=== PATIENT | male | born 1960 | race Caucasian/White ===

== ENCOUNTER 2017-01-19 02:19 | Observation (INO) ==
[2017-01-19] MEDS ORDERED: Naloxone 0.4 MG/ML INJ IVP PRN ×2 (02:34→09:18)
[2017-01-19] MEDS ORDERED: ceFAZolin 1,000 MG in D5% in Water 100 ML IVPB ONE (04:12)
[2017-01-19] MEDS ORDERED: 0.9 % Sodium Chloride 1,000 ML IVC SCH (04:15)
[2017-01-19] MEDS: *HR* HYDROmorphone (PF) 1 MG/ML SYRINGE IVP PRN ×4 (04:37→18:28)
--- NOTE | 2017-01-19 07:17 | Orthopedic History & Physical ---
Date of Encounter: 01/19/17 Time of Encounter: 07:15 Assessment and Plan (1) Puncture wound of knee, left Current visit: No Status: Acute I did discuss the diagnosis in detail with the patient. He has a traumatic left knee arthrotomy due to a puncture wound from a [place] drill bit. I did discuss treatment options and my recommendation was for arthroscopic knee lavage in order to reduce the risk of infection. He is currently on Ancef. The plan is to proceed to the operating room today for the procedure. I did discuss the case with my partner Dr. Morataya who will perform the procedure. Until then the patient was kept nothing by mouth. He will not require medical clearance from the hospitalist. Qualifiers: Qualified Code(s): S81.032A - Puncture wound without foreign body, left knee , initial encounter History of Present Illness HPI: Mr. Sánchez is a 56 year old male who is healthy and lives independently. He was using a motorized drill yesterday when a drill slipped and a [place] head drillbit punctured his left knee followed by the leakage of a thick clear fluid. This happened about 8:30 last night. He did not immediately seek medical care. Due to persistent pain and swelling to the left knee he went to the emergency department at [facility] about 1:30 in the morning. The ER doctor consulted me over the phone and my recommendation was to transfer the patient to [facility] in anticipation of arthroscopic lavage due to a traumatic knee arthrotomy. On my evaluation this morning the patient corroborates the above history. He complains of pain isolated to the left knee which is aching. He denies any numbness, tingling, or any other associated signs or symptoms. The pain is worse with movement and better at rest. There are no other modifying factors. Past Med Surg Social Fam HX - Past Medical History Medical history: kidney stones Psychiatric history: anxiety, depression, previous psychiatric hospitalization - Past Surgical History Surgical History: non-contributory, appendectomy - Social History Smoking Status: Light tobacco smoker Smokeless Tobacco Status: Yes (VAPE) Alcohol use: none Drug use: none - Family History Father Living Status: Age at : 73 Cause of : cancer Medications and Allergies diazePAM [Valium] 10 mg PO TID PRN 08/20/15 [History] 3 Allergy/AdvReac Type Severity Reaction Status Date / Time acetaminophen [From Tylenol] Allergy Hives Verified 10/04/17 01:20 celecoxib [From Celebrex] Allergy See Verified 01/19/17 01:18 Comments meloxicam [From Mobic] Allergy See Verified 01/19/17 01:18 Comments All Systems Reviewed: Constitutional and musculoskeletal systems were reviewed and are negative unless otherwise stated in history of present illness. Physical Exam - Constitutional Vitals: Temp Pulse Resp BP Pulse Ox 98.9 F 72 16 140/84 95 01/19/17 03:41 01/19/17 03:41 01/19/17 03:41 01/19/17 03:41 01/19/17 03:41 CONSTITUTIONAL -Vitals reviewed -The patient is well developed, well nourished, well groomed PSYCHIATRIC -Fully alert and oriented -Pleasant mood LEFT LOWER EXTREMITY -There is a small cruciate puncture along the superior medial aspect of the left knee -No redness, drainage, or concern for infection -Moderate palpable knee effusion -Mild generalized tenderness to the knee -I can gently range the knee through over 90 degree arc with only minimal pain -The knee is ligamentously stable -He can maintain a straight leg raise and demonstrates good active extension -No other tenderness or lesions noted. -He can grossly plantarflex and dorsiflex the ankle and toes and the foot is warm and well-perfused Diagnostic Imaging: I did personally review and interpret an x-ray of the left knee which did not show any radiopaque foreign body. No fractures identified. Results - Labs Labs: All other labs normal.
--- NOTE | 2017-01-19 11:22 | Anesthesia Evaluation PreOp ---
Date of Encounter: 01/19/17 Time of Encounter: 11:20 - Past History Planned Operation: Athroscopic lavage left knee Cardiac History: Denies any Significant Hx Pulmonary History: Smoker [employer] History: Other (anxiety, depression) Other Medical History: Renal (renal stones) Anesthesia History: No Prior Anesthetic Complications, Past Anesthesia (kidney stone extraction, r knee replacement) Alcohol Use: none Drug use: none Medications and Allergies diazePAM [Valium] 10 mg PO TID PRN 08/20/15 [History] Aripiprazole [Abilify] 5 mg PO DAILY 01/19/17 [History] [place] Carbonate 300 mg PO HS 01/19/17 [History] [place] Carbonate 600 mg PO BID 01/19/17 [History] Trazodone HCl 150 - 450 mg PO HS PRN 01/19/17 [History] 3 Allergy/AdvReac Type Severity Reaction Status Date / Time acetaminophen [From Tylenol] Allergy Hives Verified 01/19/17 01:20 celecoxib [From Celebrex] Allergy See Verified 01/19/17 01:18 Comments meloxicam [From Mobic] Allergy See Verified 01/19/17 01:18 Comments - Meds/Allergy Pre-op Review Medications Reviewed: Yes Allergies Reviewed: Yes Beta Blockers on Current Med List: No Anesthesia Results - Labs Laboratory Tests 08/20/14 01/19/17 01/19/17 15:49 02:30 02:30 WBC 11.4 H RBC 5.02 Hgb 15.9 Hct 46.1 Plt Count 304 Sodium 142 Potassium 3.4 L Chloride 103 Carbon Dioxide 27 BUN 7 L Creatinine 1.03 Glucose 92 Est Mean Plasma Glucose 114 Hemoglobin A1c 5.6 Anesthesia Exam Vital Signs/O2 Sat, Most Current Temp Pulse Resp BP Pulse Ox 98.5 F 69 15 100/66 93 01/19/17 07:15 01/19/17 07:15 01/19/17 07:15 01/19/17 07:15 01/19/17 07:15 Height: 1.88m Weight: 95kg NPO (# of Hours): >8 - HEENT Pupil (Motor): Pupils equal, EOMI Mallampati: II Teeth: Edentulous Oral Opening: Greater than 3 - [employer] LOC: Oriented [employer] Motor: Normal RUE, Normal LUE, Normal RLE, Normal LLE, Normal Face [employer] Sensory: Normal: RUE, LUE, RLE, LLE, Face - Cardiac Rhythm: Regular - Pulmonary Breath Sounds: bilateral Clear Respiratory Effort: Symmetrical Anesthesia Assess/Plan ASA Score: 2 Modified Joseph Scale for Level of Consciousness: Cooperative, oriented, and tranquil Anesthetic Plan: General (r/b/a discussed, questions answered, consent obtained) Monitoring Plan: Standard Monitors Recovery Plan: PACU
[2017-01-19] MEDS ORDERED: *HR* Midazolam HCl 2 MG/2 ML VIAL ONE (11:56)
[2017-01-19] MEDS ORDERED: *HR* FentaNYL (PF) 100 MCG/2 ML VIAL ONE ×2 (11:56→12:26)
[2017-01-19] MEDS ORDERED: *HR* Propofol 200 MG/20 ML VIAL IVP ONE (11:56)
[2017-01-19] MEDS ORDERED: Lidocaine -MPF 2% 2 ML VIAL ONE (11:56)
[2017-01-19] MEDS ORDERED: Lidocaine/EPI 1:100k 1% 50 ML VIAL INFILT ONE (11:57)
[2017-01-19] MEDS ORDERED: *HR* Promethazine 25 MG/ML VIAL IVP PRN (12:22)
[2017-01-19] MEDS ORDERED: *HR* Morphine 2 MG/ML SYRINGE IVP PRN (12:22)
[2017-01-19] MEDS ORDERED: Ondansetron 4 MG/2 ML VIAL IVP ONE (12:22)
[2017-01-19] MEDS ORDERED: Ondansetron 4 MG/2 ML VIAL ONE (12:28)
[2017-01-19] MEDS ORDERED: Dexamethasone 4 MG/ML VIAL ONE (12:28)
[2017-01-19] MEDS: ceFAZolin 2,000 MG in D5% in Water 100 ML IVPB SCH ×2 (12:37→18:29)
--- NOTE | 2017-01-19 13:55 | Orthopedic Operative Note ---
Date of procedure: 01/19/17 Pre-op diagnosis: Left knee traumatic arthrotomy Post-op diagnosis: other (1. Left knee traumatic arthrotomy 2. Left knee medial and lateral meniscus tears. 3. Left knee medial and lateral chondral defects) Procedure: 1. Left knee arthroscopic debridement with synovectomy 2. Left knee medial and lateral partial meniscectomies 3. Left knee medial and lateral chondroplasty. INDICATIONS: This is a 56-year-old male who injured his left knee last night after he was using a drill and accidentally had it slip off the screw and plunge into his left knee joint, causing a traumatic arthrotomy. He was transferred to our emergency department from an outside facility and admitted. He was placed on antibiotics overnight. On his initial exam he had a wound at the superior medial aspect of his knee at the location of his traumatic arthrotomy. He did have a knee effusion. He had no short arc pain with range of motion. He had no fevers or chills. Due to the nature of his injury and the obvious traumatic arthrotomy that occurred a left knee arthroscopy with debridement and synovectomy were recommended to the patient. The risks and benefits of the procedure were fully explained. Those risks include but are not limited to, infection, neurovascular injury, continued pain, arthritis, stiffness of the knee, further injury, need for further surgery, DVT, PE, loss of limb, and loss of life. The patient understood all of these risks and wished to proceed. Informed consent was obtained. OPERATIVE REPORT: The patient was identified in the holding area. The left lower extremity was marked, the patient was taken to the operating room and placed in the supine position. All bony prominences were well padded. The anesthesiologist performed successful general anesthetic for the remainder of the case. Preoperative antibiotics were given prior to incision. A tourniquet was placed on the upper thigh of the left lower extremity which was then prepped and draped in the usual fashion. A surgical timeout was performed. An 18g needle was used to drain 70 cc of blood from the knee. There was no purulence. 30 cc of 0.5% lidocaine with epi was injected at the portal sites and knee joint. A standard anterolateral and anteromedial portals were made. Arthroscopic examination of the knee followed. Suprapatellar pouch showed inflammation and synovitis. Patellofemoral compartment showed grade 2 changes of the trochlea. The medial compartment showed an area of grade 3 chondral change of the medial femoral condyle. There was a horizontal cleavage tear of his medial meniscus from the posterior horn to the body. The ACL and PCL were normal. The lateral compartment showed a 4 x 8 mm grade 3 chondral defect of the lateral femoral condyle. There was a small flap tear of the posterior horn of the lateral meniscus. There were no loose bodies or foreign bodies noted in the knee. There was no purulence in the knee. Medial and lateral gutters and posterior medial and posterior lateral were clear of any loose bodies or foreign bodies. Using a combination of arthroscopic joann and biters, the medial meniscus tear was debrided back to a stable rim along the posterior horn and body. Approximately 40% of the medial meniscus was debrided. An abrasion chondroplasty was performed of the medial femoral condyle chondral defect until there were no unstable chondral flaps. The posterior horn tear of the lateral meniscus was debrided using arthroscopic joann and biters, leaving approximately 90% of his lateral meniscus. An abrasion chondroplasty was performed of the focal chondral defect of the lateral femoral condyle until there were no unstable flaps. A synovectomy was then performed of the suprapatellar pouch, medial and lateral gutters. The wound was then thoroughly irrigated with a total of 10 L of normal saline. A second diagnostic arthroscopy was then performed to ensure no other loose bodies or further injury. Being satisfied with this, the knee was copiously irrigated. Instruments were removed. Incisions were closed with 3-0 nylon at the portal sites. A sterile dressing was applied, as well as an Alejandro bandage and cooling unit. The patient was awoken from general anesthetic and taken to recovery in stable condition. There were no complications with the case. POSTOPERATIVE PLAN: We will follow knee arthroscopy protocol. He will also receive 24 h of IV antibiotics and 5 days of Keflex post op. Complications: none Anesthesia: GETA Surgeon: Kodi Morataya Estimated blood loss (cc): 5 Condition: stable Disposition: floor
--- NOTE | 2017-01-19 14:16 | Anesthesia Evaluation Post Op ---
Date of Encounter: 01/19/17 Time of Encounter: 14:15 - Vital Signs Vital Signs: Vital Signs/O2 Sat, Most Current Temp Pulse Resp BP Pulse Ox 97.4 F L 63 16 127/82 97 01/19/17 14:00 01/19/17 14:00 01/19/17 14:00 01/19/17 14:00 01/19/17 14:00 - Lungs Lungs: Clear Ascult./Percussion - Airway Airway: Non-obstructed - Cardiovascular Regular Rate - Mental Status Mental Status: Alert & Oriented, Answers Appropriately - Pain Pain Scale used: Numeric (1 - 10) (tolerable) - Nausea Vomiting Nausea Vomiting: Not Present - Hydration Hydration: NPO - Discharge PostOp Status: Transfer Patient to floor Attestation: I have assessed this patient and find they meet discharge criteria.
[2017-01-20] MEDS: *HR* HYDROmorphone (PF) 1 MG/ML SYRINGE IVP PRN ×2 (02:33→10:00)
[2017-01-20] MEDS: ceFAZolin 2,000 MG in D5% in Water 100 ML IVPB SCH ×2 (02:34→10:50)
--- NOTE | 2017-01-20 08:49 | Orthopedics Progress Note ---
Date of Encounter: 01/20/17 Time of Encounter: 08:49 - Assessment and Plan (1) Status post arthroscopic knee surgery Current Visit: Yes Status: Acute A/P: 56-year-old male postop day 1 status post left knee arthroscopy with debridement, PLM, PMM. -Continue ambulation as tolerated. -PT: WBAT, ROM as tolerated -Regular diet -IV atbx x 24 hr post op -PO pain control -D/c today Subjective Interval history: Doing well postop. Denies any fevers, chills or night sweats. Ambulating without difficulty. Objective Vital signs: Vital Signs Temp Pulse Resp BP Pulse Ox 01/20/17 08:06 98.0 F 72 16 128/74 97 01/20/17 03:02 98.8 F 76 14 122/65 94 01/19/17 22:44 98.8 F 85 16 109/65 95 01/19/17 18:35 98.2 F 71 16 109/67 98 01/19/17 16:42 98.5 F 74 14 115/71 96 01/19/17 14:50 98.6 F 72 16 104/69 93 01/19/17 14:18 98.6 F 65 16 121/67 97 01/19/17 14:00 97.4 F L 63 16 127/82 97 01/19/17 13:50 97.3 F L 69 16 123/89 97 01/19/17 13:40 62 16 141/86 99 01/19/17 13:30 61 16 130/76 99 01/19/17 13:20 97.1 F L 81 16 116/86 100 Intake and Output 01/19/17 01/20/17 01/20/17 23:59 07:59 15:59 Intake Total 250 / 250 0 / 0 Output Total 1000 / 1000 0 / 0 300 / 300 Balance -750 / -750 0 / 0 -300 / -300 Intake: IV Fluids 100 / 100 Ancef 2,000 MG In Dextrose 5% 100 / 100 100 ML @ 200 mls/hr IVPB Q8H [facility] Rx#:[id number] Oral 150 / 150 0 / 0 Output: Urine 1000 / 1000 0 / 0 300 / 300 Other: Meal Dinner Percent of Meal Consumed 75% - VTE Documentation of Mechanical Device: Graduated compression elastic hosiery Consult Discharge Plan - Plan Referrals: NONE,PCP [Primary Care Provider] - Exam - Exam Clean and dry: Yes Weight bearing status: full Range of motion: 0-130. Denies any pain with short arc ROM
--- NOTE | 2017-01-20 09:04 | Discharge Summary ---
Date of Encounter: 01/20/17 Time of Encounter: 08:57 - Discharge Diagnosis (1) Status post arthroscopic knee surgery Priority: Primary Status: Acute - Discharge Medications Prescriptions: OxyCODONE Immed Rel [Roxicodone 5 MG] 5 mg PO Q6HR PRN #20 tablet PRN Reason: Pain Aspirin Enteric Coated [Aspirin EC] 325 mg PO DAILY #28 tablet. cephALEXin [Keflex] 500 mg PO QID #20 capsule Home Medications: diazePAM [Valium] 10 mg PO TID PRN 08/20/15 [History] Aripiprazole [Abilify] 5 mg PO DAILY 01/19/17 [History] [place] Carbonate 300 mg PO HS 01/19/17 [History] [place] Carbonate 600 mg PO BID 01/19/17 [History] Trazodone HCl 150 - 450 mg PO HS PRN 01/19/17 [History] Aspirin Enteric Coated [Aspirin EC] 325 mg PO DAILY #28 tablet. 01/20/17 [Rx] OxyCODONE Immed Rel [Roxicodone 5 MG] 5 mg PO Q6HR PRN #20 tablet 01/20/17 [Rx] cephALEXin [Keflex] 500 mg PO QID #20 capsule 01/20/17 [Rx] Allergies/Adverse Reactions: 3 Allergy/AdvReac Type Severity Reaction Status Date / Time acetaminophen [From Tylenol] Allergy Hives Verified 01/19/17 01:20 celecoxib [From Celebrex] Allergy See Verified 01/19/17 01:18 Comments meloxicam [From Mobic] Allergy See Verified 01/19/17 01:18 Comments Date of admission: 01/19/17 03:25 Primary care physician: PCP NONE Consults: 01/19/17 13:35 Consult to Physical Therapy [CONS] Routine Comment: Evaluate, develop and implement POC Reason for Consult: Post op left knee arthroscopy with debridement for traumatic arthrotomy Discharging clinician: Kodi Morataya Anticipated date of discharge: 01/20/17 - Patient Status Disposition: Home, Self-Care Condition: Good Overall status at discharge: patient is progressing back to baseline - Discharge Instructions Follow Up With: NONE,PCP [Primary Care Provider] - Kodi Morataya MD [Non-Partnered Physician] - Additional Instructions: POST OP INSTRUCTIONS KNEE ARTHROSCOPY Antibiotics: You are on antibiotics for 5 days after surgery. It is important to complete the antibiotic course. Weight Bearing: You may put as much weight on your leg as the knee will tolerate without pain. Be careful not to "overdo it" the first week by standing or walking too much. Elevate the leg for swelling. Cold Therapy: Apply ice for swelling and discomfort; 20 minutes on and 60 minutes off. Elevate the leg to help control swelling. Dont be afraid to bend and use the knee for daily activities. Continue this until your first post op visit. Physical Therapy: Do your home exercises even when it is uncomfortable to do so. You will not be causing any damage to your knee. Do 200 straight leg raises each day. Work on getting your leg perfectly straight and bent to at least 90 degrees or more. The bandages may make it difficult to bend you knees the first 2-3 days. Ankle pumps are to be done intermittently throughout the day 10-15 at a time- 2-3 times or more a day. Do not place a pillow under your knee for sleeping or long periods of time as it can make getting your leg fully straight more difficult and cause hamstring spasms. Range of motion exercises should be attempted 2-3 times a day or more. Further PT recommendations will be given after your first post-op appointment. Bathing: Keep the incisions clean and dry for 3 days. Then you may take a shower, but DO NOT SUBMERGE THE LEG IN A BATHTUB, WHIRLPOOL, SWIMMING POOL, ETC. until 24 hours after the stitches are removed. Showering : 3 days post op you may remove you bulky dressings down to the skin unless otherwise instructed. You may use the surgical prep remover lotion to remove any residual prep left on the skin. Again please avoid the Steri strips or sutures with the remover. Driving: You may drive when you feel safe and comfortable operating a motor vehicle and you are not taking the narcotic pain medicines. Aspirin: You surgeon has placed you on an Aspirin regimen after surgery to reduce the risk of blood clot. Unless allergic or you can not take Aspirin due to other health conditions, or on an alternative blood thinner , you are to take 325 mg( Regular ) of Aspirin once a day for the first 4 weeks after surgery. The Aspirin can be enteric coated. Do not take any other NSAIDS such as Advil, Aleve, Ibuprofen , Meloxicam Etc. while on the Aspirin regimen. There is always a risk of increased bleeding, gastrointestinal bleeds, GI upset with Aspirin and NSAIDS. Dressing: Use Band-Aids or a small gauze pad to protect the stitches from getting caught on your rosalind wrap. The rosalind wrap is used as needed to help control swelling. Always wrap from the calf toward the thigh. If the dressing slips down before this you may take off the bulky cotton dressing, cover the portals with Band-Aids and re-wrap with an ROSALIND wrap. Your appointment will be scheduled for 1-2 weeks after surgery. Call the office today or tomorrow at [phone] to confirm the appointment for next week. Please call your surgeons office for any questions or concerns After hours, for urgent/emergent issues, please call Examples of Emergent Issues to Notify Doctor Of: 1. Large amount of bleeding that is not controlled with direct pressure. 2. Signs of infection i.e.: high fever, purulent drainage, redness/swelling 3. Signs of DVT i.e.: pale/cool or red/swollen extremities, chest pain, shortness of breath 4. Uncontrolled pain, nausea/vomiting Your prescription pain medication has the potential to cause constipation. To reduce the chance of this occurring you may want to take an over the counter stool softener. The effects of anesthesia are present for [address], operate equipment or make important decisions during this time. These restrictions also apply while on prescription pain medicine. - Diet and Activity Activity: increase activity as tolerated Diet: advance to your usual diet - Hospital Course Hospital course: Mr. Sánchez is a 56 year old male who injured his left knee when accidentally putting a drill bit into his superior medial knee. He had a traumatic arthrotomy after this injury and was transferred to our emergency department from an outside institution. He was admitted overnight and placed on antibiotics. The following morning he was taken to the operating room for an arthroscopic debridement of the left knee. He was then placed on antibiotics for 24 hours postop. He tolerated the procedure well and was discharged in stable condition on postop day 1. - Time Spent with Patient Total time spent providing and/or coordinating discharge services: - VTE Documentation of Mechanical Device: Graduated compression elastic hosiery
[2017-01-20 11:30] VITALS: BP 120/76
== END 2017-01-20 13:19 | disposition home or self-care (01) ==
LOC: 3NENU
PROVIDERS: ADMIT Orthopaedic Surgery Hand Surgery; ATTEND Orthopaedic Surgery Hand Surgery